=== PATIENT | female | born 1950 | race Caucasian/White ===

== ENCOUNTER 2017-11-26 16:28 | Emergency (ER) | payer MEDICARE, OTHER ==
[~2017-11-26] VITALS: Ht 170.2 cm; Wt 100.2 kg
[2017-11-26] MEDS ORDERED: ONDANSETRON ODT 4 MG TAB.RAPDIS PO ONE (17:00)
[2017-11-26] MEDS ORDERED: ACETAMINOPHEN 500 MG TABLET PO ONE (17:00)
[2017-11-26] MEDS ORDERED: LORazepam 2 MG/ML VIAL IV ONE ×2 (17:15→19:30)
[2017-11-26] MEDS ORDERED: 0.9 % SODIUM CHLORIDE 10 ML DISP.SYRIN. IV PRN (17:15)
[2017-11-26] MEDS ORDERED: HYDROmorphone PF 1 MG/ML DISP.SYRIN IV/SQ PRN (17:15)
--- NOTE | 2017-11-26 17:21 | PHYS DOC ---
Past History Past Medical History: Anxiety, UTI Additional Past Medical Histor: sinus tachycardia Past Surgical History: No Surgical History Smoking: Non-smoker Alcohol Use: None Drug Use: None Adult General Chief Complaint Chief Complaint: FLU SYMPTOM HPI HPI Patient is a pleasant 67-year-old female with history of anxiety disorder who presents with nausea with subjective fevers chills and mild posterior headache that began earlier today. Patient yesterday noted some dysuria urgency or frequency treat herself with a dose of AZO and actually found Bactrim at home which did not improve symptoms. She became increasingly increasingly nauseous today developing some epigastric abdominal discomfort with this nausea but no vomiting, no diarrhea no constipation and no change UTI symptoms. She denies any back pain she complains now of anxiety and pain in her thighs bilaterally described as a sharp ache. At one point time she felt that the the uterine prolapse that she normally suffers from may be causing worsening dysuria so she placed a tampon inside her vagina to help improve the pressure. She remove this several hours later. She denies any change in skin color, rash, sick contacts or recent travel outside the country. She did admit to the 1 dose of Bactrim earlier today which has not helped her symptoms. Patient denies any change in medications otherwise, denies any trauma. sHe says that she has been moving with her she is new to the area and she is helping take care of a new baby at home Review of Systems Review of Systems Constitutional: Positive for subjective fevers and chills Eyes: Denies change in visual acuity, redness, or eye pain [] HENT: Denies nasal congestion or sore throat [] Respiratory: Denies cough or shortness of breath [] Cardiovascular: No additional information not addressed in HPI [] GI: Denies abdominal pain, positive for nausea and negative for vomiting diarrhea or bloody stools : Positive for dysuria urgency or frequency negative for hematuria Musculoskeletal: Positive for myalgias especially in the thighs bilaterally Integument: Denies rash or skin lesions [] Neurologic: Positive for headache posteriorly no weakness, no numbness and tingling, she does complain of cramping in her lower legs and thighs bilaterally ] Endocrine: Denies polyuria or polydipsia [] All other systems were reviewed and found to be within normal limits, except as documented in this note. Current Medications Current Medications Current Medications Medications (Trade) Dose Ordered Sig/Rubens Start Time Stop Time Status Last Admin Dose Admin Acetaminophen (Tylenol) 1,000 mg 1X ONCE 11/26/17 17:00 11/26/17 17:14 DC Ondansetron HCl (Zofran Odt) 4 mg 1X ONCE 11/26/17 17:00 11/26/17 17:14 DC Allergies Allergies Allergies Coded Allergies Type Severity Reaction Last Updated Verified No Known Drug Allergies 11/26/17 No Physical Exam Physical Exam Of the vital signs noted on the chart patient noted to be tachycardic which is chronic per patient, not hypoxic not tachypnea patient is not febrile Constitutional: Well developed, well nourished, nontoxic in appearance but some looks uncomfortable she is not diaphoretic she speaking in 8-12 are sentences without issue HENT: Normocephalic, atraumatic, bilateral external ears normal, oropharynx dry without erythema, no oral exudates no tonsillar hypertrophy, nose normal. [] Eyes: PERRLA, EOMI, conjunctiva normal, no discharge. [] Neck: Normal range of motion, no tenderness, supple, no stridor. [] Cardiovascular: Tachycardia with no murmurs gallops or rubs Lungs & Thorax: Bilateral breath sounds clear to auscultation [] Abdomen: Bowel sounds normal, soft, no tenderness, no masses, no pulsatile masses. [] Skin: Warm, dry, no erythema, no rash. [] Back: No tenderness, no CVA tenderness. [] Extremities: No tenderness to palpation of the lateral thighs no specific clubbing, cyanosis or changes in skin color.. [] Neurologic: Alert and oriented X 3, normal motor function, normal sensory function, no focal deficits noted. [] Psychologic: She is mildly tachypnea and anxious on exam but she is speaking in full sentences without issue there are no obvious retractions or sensory muscle use.. [] Current Patient Data Vital Signs Vital Signs Date Time Temp Pulse Resp B/P (MAP) Pulse Ox O2 Delivery O2 Flow Rate FiO2 11/26/17 16:35 98.0 120 18 98 Room Air EKG EKG [] Radiology/Procedures Radiology/Procedures [] Course & Med Decision Making Course & Med Decision Making Pertinent Labs and Imaging studies reviewed. (See chart for details) Differential diagnosis: Acute myocardial ischemia, heart failure, cardiac tamponade, bronchospasm, pulmonary embolism, pneumothorax, pulmonary infection i.e. bronchitis or pneumonia, upper airway obstruction, anaphylaxis, aspiration , psychogenic, pulmonary contusion, toxidrome, pneumomediastinum, noncardiogenic pulmonary edema or ARDS, COPD, tuberculosis, cystic fibrosis, asthma, high altitude pulmonary edema, valvular dysfunction, cardiac dysrhythmia , stroke, neuromuscular diseases like myasthenia gravis gravis, ALS, Guillain- Nath syndrome, metabolic acidosis to include diabetic ketoacidosis, sepsis, and obstructive disorders like massive obesity She does not complain of being short of breath or tachycardia, anxiety and tachypnea on exam are concerning for the following disorders above. Patient also has had a new baby at home they've been exposed to the flu so extreme her for other bacterial infections like UTI, pyelonephritis, influenza that could be causing her systemic symptoms. She'll be given fluids, antiemetics and some for her pain if she is deemed to be septic because he discovered a source of infection patient be given a antibiotic very clear early on the course of treatment therapy and continued her fluid management as well to treat her tachycardia. Time is now 6 PM patient is still pending her laboratory work and response to therapy. I will turn over care pending laboratory work, ancillary tests and response to therapy to the oncoming physician Dr. Rivera 2144 Evaluation of patient in ER showed 67-year-old female patient with dysuria and flulike symptoms. Patient had tachycardia 125 without fever, O2 sat was 95% at room air. Patient had negative CT of chest for PE. UA showed UTI. Patient treated with IV fluid and Ativan at arrival to ER. Patient states she has history of tachycardia previously. Plan discharge patient home with diagnosis of urinary tract infection and prescription of Bactrim. Patient doesn't want pain medication in ER or for home. Dragon Disclaimer Dragon Disclaimer This electronic medical record was generated, in whole or in part, using a voice recognition dictation system. Departure Departure: Impression: Primary Impression: Chills Additional Impressions: Dysuria Abdominal pain Tachycardia Urinary tract infection Disposition: HOME, SELF-CARE (At 2144) Condition: IMPROVED Referrals: TAYLOR MESSINA (PCP) Patient Instructions: Abdominal Pain, Dysuria Additional Instructions: discharge: I've spoken with the patient and/or caregivers. I've explained the patient's condition, diagnosis and treatment plan based on information available to me at this time. I've answered the patient's and/or caregivers questions and addressed any concerns. The patient and/or caregivers have a good understanding the patient's diagnosis, condition and treatment plan as can be expected at this point. Vital signs have been stabilized. The patient's condition is stable for discharge from the emergency department. The patient will pursue further outpatient evaluation with her primary care provider or other designated consulting physician as outlined in the discharge instructions. Patient and/or caregivers are agreeable to this plan of care and follow-up instructions have been explained in detail. The patient and/or caregivers have received these instructions in written format and expressed understanding of these discharge instructions. The patient and her caregivers are aware that if any significant change in condition or worsening of symptoms should prompt him to immediately return to this of the closest emergency department. If an emergent department is not readily available I would encourage him to call 911. Scripts Phenazopyridine Hcl (PYRIDIUM) 100 Mg Tablet 100 MG PO BID, #10 TAB Prov: RAND DOW MD 11/26/17 Sulfamethoxazole/Trimethoprim (BACTRIM DS TABLET) 1 Each Tablet 1 TAB PO BID, #14 TAB Prov: RAND DOW MD 11/26/17 Problem Qualifiers EDWIN LOUIS MD Nov 26, 2017 17:21 RAND DOW MD Nov 26, 2017 19:19
[2017-11-26] MEDS ORDERED: IV NORMAL SALINE 1,000ML 1,000 ML IV SCH (17:30)
[2017-11-26 18:13] LABS: INFLUENZA A PATIENT NEGATIVE (NEGATIVE); INFLUENZA B PATIENT NEGATIVE (NEGATIVE)
--- NOTE | 2017-11-26 18:19 | EKG ---
[address] [address] Test Date: 2017-11-26 Test Time: 17:53:11 Pat Name: AMAURY GARRISON Department: Room: Gender: F [employer]: EDILBERTO : 1950 Requested By: EDWIN LOUIS Order Number: [id number] Reading MD: Measurements Intervals [place] Rate: 123 P: -56 MI: 96 QRS: 57 QRSD: 78 T: 36 QT: 290 QTc: 420 Interpretive Statements SUPRAVENTRICULAR RHYTHM LEFT ATRIAL ABNORMALITY ABNORMAL ECG RI6.01 No previous ECG available for comparison
[2017-11-26 18:34] LABS: BASO % 0 % (0-3); EOS % 0 % (0-3); HEMATOCRIT 39.8 % (36.0-47.0); HEMOGLOBIN 13.5 g/dL (12.0-15.5); LYMPH # 0.4 x10^3/uL (1.0-4.8); LYMPH % 5 % (24-48); MEAN CORPUSCULAR HEMOGLOBIN 31 pg (25-35); MEAN CORPUSCULAR HGB CONC 34 g/dL (31-37); MEAN CORPUSCULAR VOLUME 91 fL (79-100); MONO # 0.1 x10^3/uL (0.0-1.1); MONO % 1 % (0-9); NEUT # 6.7 x10^3uL (1.8-7.7); NEUT % 93 % (31-73); PLATELET COUNT 165 x10^3/uL (140-400); RED BLOOD COUNT 4.38 x10^6/uL (3.50-5.40); WHITE BLOOD COUNT 7.2 x10^3/uL (4.0-11.0)
[2017-11-26 18:58] LABS: ALBUMIN 3.8 g/dL (3.4-5.0); CALCIUM 8.9 mg/dL (8.5-10.1); CREATININE 0.8 mg/dL (0.6-1.0); DIRECT BILIRUBIN 0.1 mg/dL (0.0-0.2); GFR 71.3; MAGNESIUM 1.5 mg/dL (1.8-2.4); POTASSIUM 3.9 mmol/L (3.5-5.1); TOTAL BILIRUBIN 0.3 mg/dL (0.2-1.0)
[2017-11-26] MEDS ORDERED: IOHEXOL 300 MG/ML 75 ML VIAL. IV ONE (19:30)
[2017-11-26] MEDS ORDERED: HYDROmorphone PF 2 MG/ML VIAL IV/SQ PRN (19:45)
[2017-11-26 19:49] LABS: BACTERIA,URINE 0 /HPF (0-FEW); BILIRUBIN,URINE NEG (NEG); CLARITY,URINE HAZY; COLOR,URINE YELLOW; GLUCOSE,URINE NEG (NEG); NITRITE,URINE NEG (NEG); RBC,URINE 0 /HPF (0-2); SQUAMOUS EPITHELIAL CELL,UR OCC /LPF; UROBILINOGEN,URINE 0.2 mg/dL (0.2 mg/dL); WBC,URINE 20-40 /HPF (0-4)
--- NOTE | 2017-11-26 20:26 | RAD ---
PQRS Compliance Statement: One or more of the following individualized dose reduction techniques were utilized for this examination: 1. Automated exposure control 2. Adjustment of the mA and/or kV according to patient size 3. Use of iterative reconstruction technique CT CHEST - PE PROTOCOL, 11/26/2017 7:55 PM Indication: Hypoxia, tachycardia Comparison: None. Technique: Multiple contiguous axial images of the chest were obtained following the administration of 75cc of Omnipaque 300 intravenous contrast. Coronal and sagittal reformats are provided. Maximum intensity projection images of the pulmonary vasculature are provided. Findings: No evidence of pulmonary embolus. No enlarged mediastinal, hilar, or axillary lymph nodes. No pleural or pericardial effusions. The diameter and course of the thoracic aorta is unremarkable. There is suboptimal opacification the pulmonary arterial system to evaluate the segmental and subsegmental pulmonary arteries. The main pulmonary arteries and lobar pulmonary arteries are normal without filling defects to suggest acute or chronic pulmonary emboli. No suspicious pulmonary nodules or areas of airspace disease. Mild bronchial wall thickening is suggestive of bronchitis. There is minimal dependent atelectasis. Platelike density in the lingula suggestive of subsegmental atelectasis versus scarring. The visualized portion of the upper abdomen is unremarkable. Calcifications within the spleen likely represent sequela prior granulomatous exposure. IMPRESSION: 1. No evidence of pulmonary embolus, although evaluation of the segmental and subsegmental pulmonary arterial system is limited by inadequate contrast opacification. If there is persistent clinical concern, further evaluation with V/Q scintigraphy may be of benefit. 2. Mild bronchial wall thickening may suggest bronchitis. Electronically signed by: Leni Partida MD (11/26/2017 8:23 PM) [facility]
[2017-11-26] MEDS ORDERED: PHEN100T82 PO (21:57)
[2017-11-26] MEDS ORDERED: SULF1TAB24 PO (21:57)
[2017-11-26 22:00] VITALS: BP 130/77
[2017-11-26] MEDS ORDERED: SMZ/TMP 800/160MG TABLET. PO ONE (22:00)
--- NOTE | 2017-11-27 08:02 | RAD ---
Portable chest, 11/26/2017: History: Fever, chills The heart size and pulmonary vascularity are normal. There is minimal linear atelectasis or scarring in the left base. The lungs are otherwise clear. There is no evidence of pleural fluid. IMPRESSION: Minimal left basilar linear atelectasis or scarring.
== END 2017-11-26 22:20 | disposition home or self-care (01) ==
LOC: ER 16:28
DX: N39.0 Urinary tract infection, site not specified (principal); R00.0 Tachycardia, unspecified; R51 Headache; F41.9 Anxiety disorder, unspecified
CPT/HCPCS: 36415; 71045; 71275; 80048; 80076; 81001; 82553; 83690; 83735; 83880; 84443; 84484; 85025; 87086; 87804; 93005; 96374; 99285; J2060; Q0162; Q9967